=== PATIENT | male | born 1970 | race Caucasian/White ===

== ENCOUNTER 2016-11-28 19:43 | Emergency (ER) | payer BC ==
[~2016-11-28] VITALS: Ht 172.7 cm; Wt 86.2 kg
[2016-11-28 19:45] VITALS: BP 138/89
--- NOTE | 2016-11-28 19:47 | ED.ADGEN ---
Adult General Chief Complaint Chief Complaint ".. My Lt upper teeth and gums are hurting.. and my face starting to hurt an swell on the upper Lt. .." HPI HPI Patient is a 46 year old male who presents with above hx and complaints of dental pain. Patient does have very poor dentition with numerous areas of dental decay and gingivitis. Patient up-to-date with tetanus. Patient denies any immunosuppression. Patient denies any trismus. There is some subtle swelling on left upper cheek near mid zygomatic . The patient has good bite. No adenopathy at angle of mandible Review of Systems Review of Systems Constitutional: Denies fever or chills [] Eyes: Denies change in visual acuity, redness, or eye pain [] HENT: Denies nasal congestion or sore throat [] complaints of dental pain Respiratory: Denies cough or shortness of breath [] Cardiovascular: No additional information not addressed in HPI [] GI: Denies abdominal pain, nausea, vomiting, bloody stools or diarrhea [] : Denies dysuria or hematuria [] Musculoskeletal: Denies back pain or joint pain [] Integument: Denies rash or skin lesions [] Neurologic: Denies headache, focal weakness or sensory changes [] Endocrine: Denies polyuria or polydipsia [] Family History Family History Noncontributory Current Medications Current Medications See nursing for home medications Current Medications Medications (Trade) Dose Ordered Sig/Katia Start Time Stop Time Status Last Admin Dose Admin Acetaminophen (Tylenol) 1,000 mg 1X ONCE 11/28/16 20:30 11/28/16 20:31 DC 11/28/16 20:16 1,000 MG Ceftriaxone Sodium (Rocephin Im) 1 gm 1X ONCE 11/28/16 20:30 11/28/16 20:31 DC 11/28/16 20:13 1 GM Ceftriaxone Sodium (Rocephin) 1 gm STK-MED ONCE 11/28/16 20:06 11/28/16 20:07 DC Ketorolac Tromethamine (Toradol) 60 mg 1X ONCE 11/28/16 20:30 11/28/16 20:31 DC 11/28/16 20:12 60 MG Allergies Allergies Allergies Coded Allergies Type Severity Reaction Last Updated Verified No Known Drug Allergies 11/28/16 No Physical Exam Physical Exam Constitutional: Moderate distress, non-toxic appearance. [] HENT: Normocephalic, atraumatic, bilateral external ears normal, oropharynx moist, no oral exudates, nose normal. Multiple areas of dental decay and gingivitis. Exam as per history of present illness Eyes: PERRLA, EOMI, conjunctiva normal, no discharge. [] Neck: Normal range of motion, no tenderness, supple, no stridor. [] Cardiovascular:Heart rate regular rhythm, no murmur [] Lungs & Thorax: Bilateral breath sounds equal with scattered wheezes on auscultation [] Abdomen: Bowel sounds normal, soft, no tenderness, no masses, no pulsatile masses. [] Skin: Warm, dry, no erythema, no rash. [] Back: No tenderness, no CVA tenderness. [] Extremities: No tenderness, no cyanosis, no clubbing, ROM intact, no edema. [] Neurologic: Alert and oriented X 3, normal motor function, normal sensory function, no focal deficits noted. [] Psychologic: Affect normal, judgement normal, mood normal. [] Current Patient Data Vital Signs Vital Signs Date Time Temp Pulse Resp B/P Pulse Ox O2 Delivery O2 Flow Rate FiO2 11/28/16 19:45 98.8 98 18 98 Room Air EKG EKG [] Radiology/Procedures Radiology/Procedures [] Course & Med Decision Making Course & Med Decision Making Pertinent Labs and Imaging studies reviewed. (See chart for details). Events mouth with Listerine 4 times a day. Use hydrogen peroxide also to rinse mouth 4 times a day. Take [id number] Tylenol and ibuprofen as needed for discomfort. For marked discomfort may take Vicoprofen up to 4 times a day. Patient take Keflex 500 mg 3 times a day. Patient must follow-up with dentist. Return of any concerns. Patient encouraged to stop smoking. [] Final Impression Final Impression 1. Dental Pain[] 2. Multiple areas of dental decay and gingivitis 3. Tobacco use Problems: Dragon Disclaimer Dragon Disclaimer This electronic medical record was generated, in whole or in part, using a voice recognition dictation system. WALLY BHATIA MD Nov 28, 2016 19:47
[2016-11-28] MEDS ORDERED: CEPH-264 PO (19:59)
[2016-11-28] MEDS ORDERED: HYDR-79 PO (19:59)
[2016-11-28] MEDS ORDERED: CEFTRIAXONE SODIUM 1 GM VIAL IV ONE (20:06)
[2016-11-28] MEDS ORDERED: CEFTRIAXONE IM 1 GM VIAL. IM ONE (20:30)
[2016-11-28] MEDS ORDERED: ACETAMINOPHEN 500 MG TABLET PO ONE (20:30)
[2016-11-28] MEDS ORDERED: KETOROLAC 60 MG/2 ML VIAL. IM ONE (20:30)
== END 2016-11-28 20:35 | disposition home or self-care (01) ==
LOC: ER 19:43
DX: K02.9 Dental caries, unspecified (principal); K05.10 Chronic gingivitis, plaque induced; Z72.0 Tobacco use
CPT/HCPCS: 96372; 99284; J0696; J1885